=== PATIENT | female | born 1985 | race Caucasian/White ===

== ENCOUNTER → 2023-07-19 10:51 | Outpatient (REF) | payer OTHER, SELFPAY | LOC: PNTC 10:51 | PROVIDERS: ATTENDING PHYSICIAN Obstetrics & Gynecology | DX: Z36.0 Encounter for antenatal screening for chromosomal anomalies (principal); Z36.82 Encounter for antenatal screening for nuchal translucency | CPT/HCPCS: 76801; 76813 ==

== ENCOUNTER 2024-01-18 08:01 | Inpatient (IN) | payer OTHER, SELFPAY ==
[2024-01-18 08:11] VITALS: BP 123/73; BMI 25.1
[2024-01-18] MEDS: LR 1000 IV (08:30)
[2024-01-18 08:53] LABS: Hematocrit 34.2 % (37.0-47.0); Hemoglobin 12.1 g/dL (12.0-16.0); Mean Corp Hgb Conc. 35.4 g/dL (33.0-37.0); Mean Corpuscular Hgb 31.8 pg (27.0-31.0); Mean Platelet Volume 11.4 fL (7.4-10.4); Platelet Count 150 10^3/uL (130-400); Red Cell Dist. Width 12.5 % (11.5-14.5); White Blood Cell Count 5.8 10^3/uL (4.8-10.8)
[2024-01-18] MEDS: TYLENOL 1000 MG PO (10:04)
[2024-01-18] MEDS: ANCEF 10 IV (10:05)
[2024-01-18] MEDS: BICITRA 30 ML PO (10:05)
--- NOTE | 2024-01-18 10:09 | W.SUR.PREOP ---
Pre-Operative Surgical Note
-
I have examined this patient prior to the performance of the scheduled procedure.
The patient's condition is unchanged from the time of the current History and
Physical and the patient is able to undergo the scheduled procedure.
[2024-01-18] MEDS: TORADOL 15 MG IV ×2 (16:00→22:55)
[2024-01-18] MEDS: ZOFRAN 4 MG IV (17:12)
[2024-01-18] MEDS: BENADRYL 25 MG PO (20:17)
[2024-01-19] MEDS: TORADOL 15 MG IV ×2 (04:42→10:19)
[2024-01-19 06:05] LABS: Hematocrit 31.7 % (37.0-47.0); Hemoglobin 11.4 g/dL (12.0-16.0); Mean Corpuscular Hgb 32.3 pg (27.0-31.0); Mean Corpuscular Volume 89.8 fL (81.0-99.0); Mean Platelet Volume 11.8 fL (7.4-10.4); Platelet Count 160 10^3/uL (130-400); Red Blood Cell Count 3.53 10^6/uL (4.20-5.40); Red Cell Dist. Width 12.3 % (11.5-14.5); White Blood Cell Count 14.6 10^3/uL (4.8-10.8)
--- NOTE | 2024-01-19 08:10 | W.PN.ANS.POP ---
Anesthesia Post Operative
- Anesthesia Post Op Note
Vital Signs Stable-See Nursing Note: Yes
Airway Patent: Yes
Adequate Pain Control: Yes
Change in Mental Status: No
Current Postoperative Nausea & Vomiting: No
Anesthesia Complications: No
General Anesthetic Recall: No
Unplanned Admission: No
Post Op Hydration Adequate: Yes
- -
Pt awake and alert, resting comfortably with no anesthesia c/o at time of post op visit. No N/V.
[2024-01-19] MEDS: SENOKOT-S 1 TABLET PO (09:09)
[2024-01-19] MEDS: PRENATAL PLUS 1 TABLET PO (09:09)
[2024-01-19] MEDS: SENOKOT-S PO (10:20)
[2024-01-19] MEDS: MOTRIN 600 MG PO (18:28)
[2024-01-19] MEDS: TYLENOL 650 MG PO (19:43)
[2024-01-20] MEDS: MOTRIN 600 MG PO ×2 (00:13→06:16)
[2024-01-20] MEDS: TYLENOL 650 MG PO ×2 (00:13→06:15)
[2024-01-20] MEDS: PRENATAL PLUS 1 TABLET PO (08:48)
--- NOTE | 2024-01-20 09:57 | W.DS.TRANS ---
DC Summary - [employer]
-
Discharge Instructions:
Discharge Diagnosis/Procedures s/p repeat low transverse section
Driving Restrictions No driving for 2 weeks
Instructions:
Stand-Alone Forms: [facility] Delivery
Changes to Home Medications: No
Discharge Medications:
DC Medications w/original date entered in [employer]
prenat.vits,vignesh,[id number] 1 tab PO DAILY Supplement 11/19/21
acetaminophen 325 mg tablet 650 mg (2 x 325 mg) PO Q4HPRN PRN mild pain #30 tabs 01/20/24
ibuprofen 600 mg tablet 600 mg PO Q6HPRN PRN cramps #30 tabs 01/20/24
sennosides 8.6 mg-docusate sodium 50 mg tablet 1 tab PO DAILYPRN PRN constipation #30 tabs 01/20/24
Home Medication Changes
Pending Results: No
--- NOTE | 2024-01-20 09:57 | W.DCSUMMARY ---
Discharge Summary
Discharge Data
Date of Admission: 01/18/24
Date of Discharge: 01/20/24
-
Pending Results: No
Hospital Course
Patient is a 38yo who presented to labor and delivery for scheduled RLTCS/BS. She has a history of one prior section and declined TOLAC. She has a history of breast cancer and has BRCA1. She has completed her family and desires
permanent sterilization. RLTCS/BS were uncomplicated. She delivered a viable male . Her postoperative course was uncomplicated. On POD#2, she was meeting all postoperative milestones and desired discharge home. Discharge instructions and
return precautions discussed and all questions answered prior to discharge. She was instructed to follow up in the office in 2 weeks.
Discharge Plan
-
Patient Disposition: Home (Routine Discharge)
Discharge Diagnosis/Procedures: s/p repeat low transverse section
Condition: Good
Driving Restrictions: No driving for 2 weeks
Stand Alone Forms: [facility] Delivery
Referrals:
Jolie Gracia DO [Active] - in two weeks
Ashley Garcia DO [Family Provider] -
Prescriptions:
New
sennosides-docusate sodium 8.6-50 mg Tablet
1 tab PO DAILYPRN PRN (Reason: constipation) Qty: 30 0RF
ibuprofen 600 mg Tablet
600 mg PO Q6HPRN PRN (Reason: cramps) Qty: 30 0RF
acetaminophen 325 mg Tablet
650 mg PO Q4HPRN PRN (Reason: mild pain) Qty: 30 0RF
Continued
prenat.vits,vignesh,[id number] Tablet
1 tab PO DAILY
Discharge Orders:
Discharge Patient (As Directed); Ordered 01/20/24
Ordered By: Shanda Marin
Discharge Date and Time
Print Language: ROMANIAN
[2024-01-21 10:37] LABS: Syphilis/T. pallidum Ab Reflex Negative (Negative)
== END 2024-01-20 10:39 | disposition home or self-care (01) | DRG 785 ==
LOC: LDRP 08:01
PROVIDERS: ADMITTING PHYSICIAN Obstetrics & Gynecology; FAMILY PHYSICIAN Family Medicine
PROC: 0UT70ZZ Resection of Bilateral Fallopian Tubes, Open Approach (ICD-10-PCS; 2024-01-18)
PROC: 10D00Z1 Extraction of Products of Conception, Low, Open Approach (ICD-10-PCS; 2024-01-18)
DX: O34.211 Maternal care for low transverse scar from previous cesarean delivery (principal); O69.81X0 Labor and delivery complicated by cord around neck, without compression, not applicable or unspecified; Z30.2 Encounter for sterilization; Z37.0 Single live birth; Z3A.39 39 weeks gestation of pregnancy; Z85.3 Personal history of malignant neoplasm of breast; Z90.13 Acquired absence of bilateral breasts and nipples; Z80.41 Family history of malignant neoplasm of ovary; Z80.3 Family history of malignant neoplasm of breast; Z64.1 Problems related to multiparity; Z15.01 Genetic susceptibility to malignant neoplasm of breast
CPT/HCPCS: 88302; 88307; 36415; 58605; 85027; 86780; 86850; 86900; 86901